=== PATIENT | female | born 1960 | race Caucasian/White ===

== ENCOUNTER 2020-12-18 21:30 | Emergency (ER) | payer OTHER, BC ==
[~2020-12-18] VITALS: Ht 160 cm; Wt 108.0 kg
[~2020-12-18 21:30] MED LIST: ALPR0.25 PO; BUTACAP64 OR; NAPR-223 PO; PHEN37.577 PO
[2020-12-18] MEDS ORDERED: guaiFENesin-CODEINE Liq 5 ML UD PO ONE (22:30)
[2020-12-18] MEDS ORDERED: AZITHROMYCIN 500MG/ 250ML 250 ML IV ONE (22:30)
[2020-12-18] MEDS ORDERED: cefTRIAXone 1GM/50ML D5W 50 ML IV ONE (22:30)
[2020-12-18 22:42] LABS: Basophils # (auto) 0 10 ^3/uL (0-0.2); Basophils % (auto) 0.5 % (0.0-2.0); Eosinophils # (auto) 0.1 10 ^3/uL (0-0.8); Eosinophils % (auto) 1.5 % (0.0-7.0); Hematocrit 40.5 % (36.0-46.0); Hemoglobin 13.5 g/dL (12.2-16.2); Lymphocytes # (auto) 1.8 10 ^3/uL (0.4-5.4); Lymphocytes % (auto) 22.3 % (10.0-50.0); Mean Corpuscular Hemoglobin 31.4 pg (28.0-32.0); Mean Corpuscular Hgb Conc. 33.4 g/dL (32.0-36.0); Mean Corpuscular Volume 93.9 fL (80.0-100.0); Monocytes # (auto) 0.6 10 ^3/uL (0-1.3); Neutrophils # (auto) 5.6 10 ^3/uL (1.6-8.6); Neutrophils % (auto) 68.7 % (37.0-80.0); Platelet Count (auto) 334 10^3/uL (140-450); Red Blood Cells 4.31 10^6/uL (4.0-5.20); Red Cell Distribution Width 14.7 % (11.8-14.3); White Blood Cell 8.2 10^3/uL (4.4-10.8)
[2020-12-18 22:54] LABS: Alanine Aminotransferase 22 U/L (13-56); Albumin 3.9 g/dL (3.4-5.0); Anion Gap 10 (5-15); Aspartate Aminotransferase 16 U/L (15-37); BUN/Creatinine Ratio 10.8; Blood Urea Nitrogen 8 mg/dL (7-18); Calcium 9.4 mg/dL (8.5-10.1); Carbon Dioxide 26 mmol/L (21-32); Chloride 101 mmol/L (98-107); GFR African American 103 mL/min; GFR Non-African American 85 mL/min; Glucose 132 mg/dL (74-106); Potassium 3.8 mmol/L (3.5-5.1); Sodium 137 mmol/L (136-145)
[2020-12-18 23:03] LABS: Alkaline Phosphatase 107 U/L (45-117); Bilirubin, Total 0.5 mg/dL (0.2-1.0); CRP High Sensitivity 3.15 mg/dL (< 0.3); INR 0.96 (0.9-1.15); Partial Thromboplastin Time 25.9 sec (23.0-31.2); Total Protein 7.8 g/dL (6.4-8.2)
[2020-12-18 23:18] LABS: Amylase 18 U/L (25-115); Lipase 41 U/L (73-393)
[2020-12-18] MEDS ORDERED: IOHEXOL 350 MG/ML 100ML IJ ONE (23:24)
[2020-12-19 02:29] LABS: Urine Bacteria FEW /hpf (None Seen); Urine Blood Negative /uL (Negative); Urine Mucus FEW (None Seen); Urine WBC 11 /hpf (0 - 5)
[2020-12-19 02:30] LABS: Urine Specific Gravity > 1.035 (1.001-1.035)
[2020-12-19 04:00] VITALS: BP 141/71
== END 2020-12-19 04:19 | disposition home or self-care (01) ==
LOC: ER 21:30 → EEVIPCON 21:30 → ER 12-19 04:17
DX: J06.9 Acute upper respiratory infection, unspecified (principal); K80.20 Calculus of gallbladder without cholecystitis without obstruction; R74.9 Abnormal serum enzyme level, unspecified; Z20.822 Contact with and (suspected) exposure to COVID-19
CPT/HCPCS: 36415; 71260; 74177; 76700; 80053; 81001; 82150; 82728; 83690; 83735; 83880; 84484; 85025; 85379; 85610; 85730; 86141; 86225; 86235; 87426; 93005; 96365; 96366; 99285; C9803; J0456; J0696; Q9967; U0003

== ENCOUNTER 2021-10-09 21:05 | Emergency (ER) | payer BC, OTHER ==
[~2021-10-09] VITALS: Ht 160 cm; Wt 104.3 kg
[2021-10-09] MEDS ORDERED: ASPirin 325 MG TAB ONE (21:11)
[2021-10-09] MEDS ORDERED: ASPirin 325 MG TAB PO ONE (21:15)
[2021-10-09] MEDS ORDERED: NITROGLYCERIN 0.4 MG SL TAB SL ONE (21:30)
[2021-10-09 22:55] LABS: Albumin 3.7 g/dL (3.4-5.0); Potassium 4.4 mmol/L (3.5-5.1)
[2021-10-09 23:00] LABS: Bilirubin, Total 0.6 mg/dL (0.2-1.0); Total Protein 7.5 g/dL (6.4-8.2)
[2021-10-10 05:00] VITALS: BP 158/84
== END 2021-10-10 05:05 | disposition home or self-care (01) ==
LOC: EEVIPCON 21:08 → ER 21:08
DX: R07.89 Other chest pain (principal); R51.9 Headache, unspecified; I10 Essential (primary) hypertension; E78.5 Hyperlipidemia, unspecified
CPT/HCPCS: 36415; 70450; 71045; 80053; 84484; 93005

== ENCOUNTER 2021-11-16 19:37 | Emergency (ER) | payer BC ==
[~2021-11-16] VITALS: Ht 162.6 cm; Wt 113.4 kg
[2021-11-16] MEDS ORDERED: IBUPROFEN 600 MG TAB PO ONE (20:30)
[2021-11-16] MEDS ORDERED: ZINC220C8 PO (21:36)
[2021-11-16] MEDS ORDERED: AZIT1POW PO (21:36)
[2021-11-16] MEDS ORDERED: METH4PAK PO (21:36)
[2021-11-16] MEDS ORDERED: AZITHROMYCIN 250 MG TAB PO ONE (21:45)
[2021-11-16] MEDS ORDERED: predniSONE 20 MG TAB PO ONE (21:45)
[2021-11-16] MEDS ORDERED: ZINC SULFATE 220mg CAP or TAB PO ONE (21:45)
[2021-11-16 22:09] VITALS: BP 130/80
== END 2021-11-16 22:09 | disposition home or self-care (01) ==
LOC: EEVIPCON 19:37 → ER 19:39
DX: U07.1 COVID-19 (principal); I10 Essential (primary) hypertension; E78.5 Hyperlipidemia, unspecified; Z90.710 Acquired absence of both cervix and uterus
CPT/HCPCS: 36415; 71045; 87426; 87804; 99284; J7512